=== PATIENT | female | born 1975 | race Caucasian/White ===

== ENCOUNTER → 2017-01-01 | Outpatient (CLI) | payer OTHER ==
--- NOTE | 2017-01-10 11:25 | RADIOLOGY REPORT PS360 ---
US BREAST-LT COMPLETE W/AXILLA HISTORY: 6 MONTH F/U Ultrasound entire left breast 6 month follow-up Patient Age: 41 years: Female Ordering Physician: Kristian Suarez MD TECHNIQUE: Ultrasound entire left breast including axillary survey. But 6 month follow-up study COMPARISON :Previous breast ultrasound 05/09/2016 FINDINGS. No suspicious findings today's ultrasound. Dense breast . Behind the nipple there is a 1.3 cm x length 5 mm AP elongated mildly hypoechoic area possible reflects a elongated area of glandular tissue or generous duct but overall. Unimpressive. The areas seen behind the nipple on the previous ultrasound but overall appears slightly less pronounced, less evident on today's study. Not of significant concern and can be followed. I would recommend a bilateral mammogram and left breast ultrasound 6 months. Axillary survey reveals no significant findings. However after lifting over this patient's entire profile I would encourage should return for a left mammogram at this time with spot views towards upper-outer quadrant to correlate with previous studies as well. Specifically. CC spot views lateral breast along with MLO spot views upper outer quadrant recommended to compared to previous CC LS study IMPRESSION--- Ultrasound only was performed today performed today. It shows no significant new findings. Stable to less evident area of density retroareolar region on today's ultrasound exam. However after additional again reviewing the patient's moderate dense breast through the series series of multiple mammograms along with most recent studies, I believe she would benefit from a follow-up left mammogram with spot views upper outer quadrant at this time after all.... . These would be too further exclude area subtle architectural distortion upper outer quadrant. BI-RADS CATEGORY: 0_Incomplete: Need additional imaging RECOMMENDED FOLLOWUP: ADD ADDITIONAL IMAGING Left mammogram with Spot views upper-outer quadrant left breast (A letter has been sent to the patient regarding results of the study.)
== END ==
LOC: RAD 13:45
DX: R92.8 Other abnormal and inconclusive findings on diagnostic imaging of breast (principal)

== ENCOUNTER → 2017-01-22 | Outpatient (CLI) | payer OTHER ==
--- NOTE | 2017-01-28 23:41 | RADIOLOGY REPORT PS360 ---
ULTRASOUND LEFT BREAST with axillary survey_ ULTRASOUND-GUIDED BX left breast. Mammotome vacuum core bx w/ clip placement US ORGAN SITE (BREAST), DIG DIG MAMM-DX UNI-LT W/CAD, -post biopsy INDICATION: Stellate area of architectural distortion seen on mammogram & ultrasound. COMPARISON: Left Mammogram and ultrasound Jan 18, 2017 , with subtle focal area of shadowing which match the area of architectural distortion at 4 o'clock position left breast left mammogram.. ======= ULTRASOUND LEFT BREAST: Including axillary survey Initial ultrasound survey left breast again shows the subtle architectural changes with an focal area shadowing 4 o'clock position left breast. This Was surprisingly difficult to visualize initially with ultrasound but appreciated after noting focal scanning area of which showed architectural distortion with stellate character lesion developing in 4-5 o'clock position. Position of abnormality confirmed and the best route for biopsy was determined by Dr. Colon and technologist MW We also again surveyed axillary nodes in view of this suspicious lesion at 4:00. Only benign-appearing lymph nodes again encountered on today's ultrasound study. ========= ULTRASOUND-GUIDED MAMMOTOME BIOPSY WITH CLIP PLACEMENT RIGHT BREAST] Patient received Xanax 0.5 mg & Lortab 5 prior to this procedure for comfort and mild sedation. Following sterile preparation and local skin anesthesia and deep Xylocaine anesthetic placement we proceeded with y mammotome biopsy . Small 2 mm incision was made in the skin by Dr. Colon after additional local skin anesthesia was placed, as well as deep anesthetic placement posterior to the lesion The 12-gauge mammotome needle was then passed under ultrasound guidance. It was placed posterior aspect of the nodule and multiple biopsies were obtained removing the posterior portion of this nodule. Patient tolerated procedure well with minor discomfort.. At the end of procedure small metallic marker clip with collagen plug was placed at the biopsy site.. ==== DIAGNOSTIC LEFT MAMMOGRAM-POST BIOPSY CC and MLO and 90 degree views of the left breast performed following the biopsy. These demonstrate the metallic clip cyst at the medial inferior margin of the stellate lesion. It is in satisfactory position. It appears likely sampled/ biopsied the posterior aspect this stellate lesion.. Pathology pending at this point ------ IMPRESSION: 1. Focal area Shadowing from stellate lesion with architectural distortion at 4:00 evident but was Surprisingly difficult to initially see with ultrasound scanning today. Lesion Localized & with ultrasound-guided mammotome core biopsies, w/ subsequent clip placement 2. Postbiopsy mammogram shows the clip along the medial/ inferior margin of the lesion. It appears The posterior margin of the nearly 1.5 cm lesion was mainly biopsied today 3. PATHOLOGY REPORT.- Positive for carcinoma. Please see complete Pathology Report final readout. Briefly summarized below: Invasive well differentiated ductal carcinoma. Left breast 4:00 lesion Focal low-grade ductal carcinoma in situ (Estrogen positive, progesterone receptor negative. H ER negative) .
== END ==
LOC: RAD 10:45
PROC: 0HBU3ZX Excision of Left Breast, Percutaneous Approach, Diagnostic (ICD-10-PCS; principal; 2017-01-22)
DX: R92.8 Other abnormal and inconclusive findings on diagnostic imaging of breast (principal)
CPT/HCPCS: C2618; G0206-LT